=== PATIENT | female | born 1945 | race Caucasian/White ===

== ENCOUNTER 2019-07-12 12:45 | Emergency (ER) | payer BC, MEDICARE ==
--- NOTE | 2019-07-12 12:49 | ERPHSYRPT ---
- History of Present Illness Time Seen by Provider: 07/12/19 12:48 Source: patient, family Exam Limitations: no limitations Physician History: 73 y/o white female was making her bed when she tripped and fell hitting her head and now has a headache and neck pain. pt states she might have lost consciousness. pt and pts daughter want pt to have ct scan head and c spine Occurred: just prior to arrival Reason for Fall: tripped Injuries/Pain Location: head, neck Loss of Consciousness: brief (seconds) Quality: aching Severity of Pain-Max: mild Severity of Pain-Current: mild Modifying Factors: Improves With: movement Associated Symptoms (Fall): lightheadedness Allergies/Adverse Reactions: cephalexin [From Keflex] Adverse Reaction (Verified 07/12/19 14:01) Home Medications: No Reportable Medications [No Reported Medications] 07/12/19 [History] - Review of Systems Constitutional: No Symptoms Eyes: No Symptoms Ears, Nose, & Throat: No Symptoms Respiratory: No Symptoms Cardiac: No Symptoms Abdominal/Gastrointestinal: No Symptoms Genitourinary Symptoms: No Symptoms Musculoskeletal: Neck Pain Skin: No Symptoms Neurological: Headache Psychological: No Symptoms Endocrine: No Symptoms Hematologic/Lymphatic: No Symptoms Immunological/Allergic: No Symptoms All Other Systems: Reviewed and Negative - Past Medical History Pertinent Past Medical History: Yes Neurological History: No Pertinent History ENT History: No Pertinent History Cardiac History: No Pertinent History Respiratory History: No Pertinent History Endocrine Medical History: No Pertinent History Musculoskeletal History: No Pertinent History GI Medical History: No Pertinent History History: No Pertinent History Psycho-Social History: No Pertinent History Female Reproductive Disorders: No Pertinent History - Past Surgical History Past Surgical History: Yes Neuro Surgical History: No Pertinent History Cardiac: No Pertinent History Respiratory: No Pertinent History Gastrointestinal: No Pertinent History Genitourinary: No Pertinent History Musculoskeletal: No Pertinent History Female Surgical History: No Pertinent History - Nursing Vital Signs Nursing Vital Signs: Initial Vital Signs Temperature 98.2 F 07/12/19 13:36 Pulse Rate 72 07/12/19 13:36 Respiratory Rate 16 07/12/19 13:36 Blood Pressure 183/75 07/12/19 13:36 Pain Scale Pain Intensity 1 - [place] Coma Score Best Eye Response ([place]): (4) open spontaneously Best Verbal Response ([place]): (5) oriented Best Motor Response ([place]): (6) obeys commands [place] Total: 15 - Physical Exam General Appearance: mild distress, alert, anxiety Head Injury: contusions, No active bleeding, No High's Sign Eye Exam: PERRL/EOMI, eyes nml inspection ENT Exam: airway nml, nml ext.inspection, hearing grossly normal Neck Exam: supple, trachea midline, full range of motion, normal alignment, muscle spasm, stiff neck Respiratory/Chest Exam: No chest tenderness Gastrointestinal Exam: No tenderness Rectal Exam: not done Back Exam: normal inspection, normal range of motion, No CVA tenderness, No vertebral tenderness Extremity Exam: normal inspection, normal range of motion, capillary refill <3 sec, pelvis stable Neurologic Exam: alert, oriented x 3, cooperative, surg rn II-XII nml as tested, normal mood/affect, nml cerebellar function, nml station & gait, sensation nml Skin Exam: normal color, warm, dry SpO2 Interpretation: normal O2 Delivery: Room Air - Course Nursing assessment & vital signs reviewed: Yes Ordered Tests: Active Orders 24 hr Category Date Time Status CERVICAL SPINE WO CONTRAST [CT] Stat Exams 07/12/19 14:11 Completed HEAD WITHOUT CONTRAST [CT] Stat Exams 07/12/19 14:10 Completed - Progress Progress: unchanged Progress Note: 07/12/19 15:27 ct head and c spine-no acute process Counseled pt/family regarding: diagnosis, need for follow-up, rad results - Departure Departure Disposition: Home Clinical Impression: Fall, Head injury Condition: Stable Critical Care Time: No Additional Instructions: tylenol and ibuprofen for pain. follow up with primary doctor for persistent symptoms
[2019-07-12 14:00] VITALS: BP 183/75
--- NOTE | 2019-07-12 14:44 | XRAY ---
Indication: Pain following fall. Multiple contiguous axial images obtained through the head without contrast. Comparison: None Globe atrophy within normal limits for patient's age. No acute intracranial hemorrhage, abnormal extra-axial fluid collection, or mass effect. Fourth ventricle is midline without hydrocephalus. Mena-white matter differentiation preserved. Bony calvarium intact. Visualized paranasal sinuses and mastoid air cells are clear. Impression: Age-appropriate atrophy. No acute intracranial abnormalities.
--- NOTE | 2019-07-12 14:47 | XRAY ---
Indication: Neck pain following fall. Multiple contiguous axial images obtained through the cervical spine. Sagittal and coronal reformatted images obtained. Comparison: None Axial images negative for acute fracture, suspicious bony lesions, or spinal canal stenosis. There is mild C3-T1 degenerative endplate spurring. Also mild/moderate multilevel bilateral degenerative facet hypertrophy. Sagittal and coronal reformatted images demonstrates cervical lordotic straightening, positional versus paraspinal spasm. C4 segment demonstrates 2 mm anterolisthesis. C5-T1 disc space narrowing. No acute compression fracture or jumped facet. Normal appearing craniocervical junction. Visualized noncontrasted soft tissues demonstrates mild bilateral carotid calcifications and minimal biapical fibrosis/scarring. Impression: 1. Cervical lordotic straightening, positional versus paraspinal spasm. Negative for acute fracture. 2. Multilevel degenerative changes including minimal grade 1 C4 anterolisthesis.
[2019-07-12 15:34] VITALS: PULSE 58; O2SAT 99
== END 2019-07-12 15:45 | disposition home or self-care (01) ==
LOC: ED 12:45
DX: S09.90XA Unspecified injury of head, initial encounter (principal); R51 Headache; M54.2 Cervicalgia; W01.10XA Fall on same level from slipping, tripping and stumbling with subsequent striking against unspecified object, initial encounter
CPT/HCPCS: 70450; 72125; 99283

== ENCOUNTER 2020-12-07 10:32 | Observation (INO) | payer MEDICARE ==
[2020-12-07 11:25] LABS: Absolute Neutrophil Ct (ANC) 4.96 (1.4-6.9); BASOPHIL % 0.3 % (0.0-0.4); Basophil (Absolute #) 0.02 (0-0.4); Eosinophil % 0.9 % (0.00-5.0); Eosinophil (Absolute #) 0.06 (0-0.5); Hematocrit 37.2 % (35-47); Hemoglobin 12.2 gm/dl (12.0-16.0); Lymphocyte (Absolute #) 1.24 (1.0-4.6); Lymphocytes % 18.5 % (24.0-44.0); Mean Cell Volume 95.1 fl (78-100); Mean Corpuscular Hemoglobin 31.2 pg (26-32); Mean Corpuscular Hgb Concent. 32.8 g/dl (32-36); Mean Platelet Volume 10.5 fl (7.5-11.0); Monocyte (Absolute #) 0.43 (0.0-1.3); Monocytes % 6.4 % (0.0-12.0); Neutrophil % 73.9 % (36.0-66.0); Platelet Count 292 K/mm3 (150-450); Red Blood Count 3.91 M/mm3 (4.1-5.4); Red Cell Distribution Width 13.5 % (11.5-14.0); White Blood Count 6.7 K/mm3 (4.0-10.5)
[2020-12-07 11:27] LABS: ALBUMIN 4.3 g/dL (3.5-5.0); ANION GAP 11.5 MEQ/L (5-15); BILIRUBIN,TOTAL 0.5 mg/dL (0.2-1.3); Calcium 9.8 mg/dL (8.4-10.2); Creatinine 1 1.22 mg/dL (0.52-1.04); EST GLOMERULAR FILTRATION RATE 45.4 ML/MIN; Potassium 3.9 mmol/L (3.5-5.1); Total Protein 6.9 g/dL (6.3-8.2)
--- NOTE | 2020-12-07 11:31 | ERPHSYRPT ---
- History of Present Illness Source: patient Exam Limitations: no limitations Patient Subjective Stated Complaint: Dizziness Triage Nursing Assessment: Patient brought back to ED via w/c and transferred to bed with assist of 1. Patient's skin pale, warm and dry. Patient states she woke up around 0900 and was dizzy with N/V. Patient denies pain or discomfort. Physician History: 75 yo wf w sudden onset of dizziness at 9AM while waking up. Pt stated that she felt the room spinning. Dizziness accompanied by N/V. Pt denied focal weakness/chest pain/fever/shortness of breath/otalgia/cough/abdominal pain. She had B cataract surgery October 28. Pt has no h/o vertigo. Symptoms resolved prior to arrival. Timing/Duration: other (Stareted 9AM) Character of Deficits: other (Dizziness) Deficits: off balance (Resolved) Baseline/Normal Cognition: alert oriented x 3 Current Cognition: alert oriented x 3 Baseline Gait: walks w/o assistance Associated Symptoms: nausea, vomiting, No confusion, No fatigue, No fever, No chills, No loss of consciousness, No weakness, No insomnia, No muscle spasms, No numbness/tingling in legs/feet, No paresthesia, No ringing in ears, No seizures, No slurred speech, No trouble walking, No vision changes, No chest pain, No headache Allergies/Adverse Reactions: cephalexin [From Keflex] Adverse Reaction (Verified 12/07/20 18:38) Diarrhea Home Medications: Dextran 70/Hypromellose [Artificial Tears Drops] 1 drop OP DAILY 12/07/20 [History] Hx Tetanus, Diphtheria Vaccination/Date Given: (unknown) Hx Influenza Vaccination/Date Given: Yes Hx Pneumococcal Vaccination/Date Given: No Immunizations Up to Date: Yes Travel Risk - International Travel Have you traveled outside of the country in past 3 weeks: No - Coronavirus Screening Are you exhibiting any of the following symptoms?: No Close contact with a COVID-19 positive Pt in past 14-21 Days: No - Vaccine Status Have you recieved a Covid-19 vaccination: No - Review of Systems Constitutional: No Symptoms Eyes: No Symptoms Ears, Nose, & Throat: No Symptoms Respiratory: No Symptoms Cardiac: No Symptoms Abdominal/Gastrointestinal: No Symptoms Genitourinary Symptoms: No Symptoms Musculoskeletal: No Symptoms Skin: No Symptoms Neurological: Dizziness Psychological: No Symptoms Endocrine: No Symptoms Hematologic/Lymphatic: No Symptoms Immunological/Allergic: No Symptoms - Past Medical History Pertinent Past Medical History: Yes Neurological History: No Pertinent History ENT History: No Pertinent History Cardiac History: No Pertinent History Respiratory History: No Pertinent History Endocrine Medical History: No Pertinent History Musculoskeletal History: No Pertinent History GI Medical History: No Pertinent History History: No Pertinent History Psycho-Social History: No Pertinent History Female Reproductive Disorders: No Pertinent History - Past Surgical History Past Surgical History: Yes Neuro Surgical History: No Pertinent History Cardiac: No Pertinent History Respiratory: No Pertinent History Gastrointestinal: No Pertinent History Genitourinary: No Pertinent History Musculoskeletal: No Pertinent History Female Surgical History: No Pertinent History Other Surgical History: cyst removed from left breast years ago, ovarian cysts removed that caused temporary paralysis prior to removal - Social History Smoking Status: Never smoker Exposure to second hand smoke: No Drug Use: none Patient Lives Alone: No (son) Significant Family History: no pertinent family hx - Female History Hx Now: No - Nursing Vital Signs Nursing Vital Signs: Initial Vital Signs Temperature 96.9 F 12/07/20 10:44 Pulse Rate 69 12/07/20 10:44 Respiratory Rate 18 12/07/20 10:44 Blood Pressure 176/80 12/07/20 10:44 O2 Sat by Pulse Oximetry 99 12/07/20 10:44 Pain Scale Pain Intensity 0 - Kobi Coma Scale Best Eye Response ([place]): (4) open spontaneously Best Verbal Response ([place]): (5) oriented Best Motor Response ([place]): (6) obeys commands [place] Total: 15 - Physical Exam General Appearance: no apparent distress Eye Exam: bilateral eye: normal inspection, PERRL, EOMI Ears, Nose, Throat Exam: normal ENT inspection, TMs normal, pharynx normal, moist mucous membranes Neck Exam: normal inspection, non-tender, supple, full range of motion, No meningismus, No mass, No Brudzinski, No Kernig's Respiratory: normal breath sounds, lungs clear, airway intact Cardiovascular: regular rate/rhythm, normal heart sounds, normal peripheral pulses, No murmur Gastrointestinal: soft, normal bowel sounds, No tenderness Back Exam: normal inspection, normal range of motion, No CVA tenderness Extremity Exam: normal inspection, normal range of motion Peripheral Pulses: carotid (R): 2+, carotid (L): 2+ Mental Status: alert, oriented x 3, cooperative automobile service station attendant Exam: normal hearing, normal speech, PERRL, No abnormal gag reflex Coordination/Gait: normal finger to nose, negative Romberg's sign Motor/Sensory: no motor deficit, no sensory deficit, no pronator drift DTR: bicep (R): 2+, bicep (L): 2+, knee (R): 2+, knee (L): 2+ Skin Exam: normal color, warm, dry, No rash SpO2 Interpretation: normal SpO2: 99 O2 Delivery: Room Air - Course Nursing assessment & vital signs reviewed: Yes EKG Interpreted by Me: RATE (NSR/R79/Borderline prolonged QTc/Normal ST[facility]) - CT Exams Head CT Interpretation: Discussed w/radiologist (CTA Head/Neck neg for acute pathology per Dr. Montez/Minimal CA stenosis) Ordered Tests: Active Orders 24 hr Category Date Time Status Chip Applying Machine Tender STAT Care 12/07/20 10:49 Completed EKG-ER Only STAT Care 12/07/20 10:48 Completed Heart-Healthy Diet Diet 12/07/[address] ANGIOGRAPHY NECK [CT] Stat Exams 12/07/20 10:50 Completed CTA HEAD W AND/OR WO CONTRAST [CT] Stat Exams 12/07/20 10:49 Completed MRI BRAIN W/O CONTRAST [MRI] Stat Exams 12/07/20 13:37 Completed CBC W DIFF AM.LAB Lab 12/08/20 04:00 Ordered CBC W DIFF Stat Lab 12/07/20 11:00 Completed CMP AM.LAB Lab 12/08/20 04:00 Ordered CMP Stat Lab 12/07/20 11:00 Completed TROPONIN Q3H Lab 12/07/20 11:00 Completed TROPONIN Q3H Lab 12/07/20 13:00 Completed TROPONIN Q3H Lab 12/07/20 17:12 Completed TROPONIN Q3H Lab 12/07/20 20:38 Completed TROPONIN Q3H Lab 12/07/20 22:40 Completed Transfer Order Routine Transfer 12/07/20 Completed Medication Summary Generic Name Dose Route Start Last Admin Trade Name Freq PRN Reason Stop Dose Admin Sodium Chloride 1,000 mls @ 100 mls/hr 12/07/20 16:45 12/07/20 17:18 Sodium Chloride 0.9% 1000 Ml IV 01/06/21 16:44 100 mls/hr .Q10H INDIRA Administration Meclizine HCl 25 mg 12/07/20 16:43 Antivert 25 Mg PO 01/06/21 16:42 Q6H PRN PRN DIZZINESS Ondansetron HCl 4 mg 12/07/20 16:40 Zofran 4 Mg/2 Ml Vial IV 01/06/21 16:39 Q6H PRN PRN NAUSEA/VOMITING Pantoprazole Sodium 40 mg 12/08/20 10:00 Protonix 40 Mg Iv IV 01/07/21 09:59 Q24H10 INDIRA Discontinued Medications Generic Name Dose Route Start Last Admin Trade Name Freq PRN Reason Stop Dose Admin Lorazepam 1 mg 12/07/20 14:06 12/07/20 14:09 Ativan 2 Mg/1 Ml Vial IV 12/07/20 14:07 1 mg STAT ONE Administration Lorazepam Confirm 12/07/20 14:07 Ativan 2 Mg/1 Ml Vial Administered 12/07/20 14:08 Dose 2 mg .ROUTE .STK-Extreme DA ONE Meclizine HCl 25 mg 12/07/20 16:01 12/07/20 16:03 Antivert 25 Mg PO 12/07/20 16:02 25 mg STAT ONE Administration Meclizine HCl Confirm 12/07/20 16:03 Antivert 25 Mg Administered 12/07/20 16:04 Dose 25 mg .ROUTE .[employer]-MED ONE Lab/Rad Data: Laboratory Result Diagrams 12/07/20 11:00 12/07/20 11:00 Laboratory Results 12/07/20 12/07/20 12/07/20 Range/Units 17:12 16:50 13:00 WBC (4.0-10.5) K/mm3 RBC (4.1-5.4) M/mm3 Hgb (12.0-16.0) gm/dl Hct (35-47) % MCV (78-100) fl MCH (26-32) pg MCHC (32-36) g/dl RDW (11.5-14.0) % Plt Count (150-450) K/mm3 MPV (7.5-11.0) fl Gran % (36.0-66.0) % Eos # (Auto) (0-0.5) Absolute Lymphs (auto) (1.0-4.6) Absolute Monos (auto) (0.0-1.3) Lymphocytes % (24.0-44.0) % Monocytes % (0.0-12.0) % Eosinophils % (0.00-5.0) % Basophils % (0.0-0.4) % Absolute Granulocytes (1.4-6.9) Basophils # (0-0.4) Sodium (137-145) mmol/L Potassium (3.5-5.1) mmol/L Chloride (98-107) mmol/L Carbon Dioxide (22-30) mmol/L Anion Gap (5-15) MEQ/L BUN (7-17) mg/dL Creatinine (0.52-1.04) mg/dL Estimated GFR ML/MIN Glucose (74-106) mg/dL Calcium (8.4-10.2) mg/dL Total Bilirubin (0.2-1.3) mg/dL AST (14-36) U/L ALT (0-35) U/L Alkaline Phosphatase (38-126) U/L Troponin I < 0.012 < 0.012 (0.000-0.034) ng/mL Serum Total Protein (6.3-8.2) g/dL Albumin (3.5-5.0) g/dL SARS-CoV-2 (PCR) NEGATIVE (NEGATIVE) 12/07/20 12/07/20 12/07/20 Range/Units 11:00 11:00 11:00 WBC 6.7 (4.0-10.5) K/mm3 RBC 3.91 L (4.1-5.4) M/mm3 Hgb 12.2 (12.0-16.0) gm/dl Hct 37.2 (35-47) % MCV 95.1 (78-100) fl MCH 31.2 (26-32) pg MCHC 32.8 (32-36) g/dl RDW 13.5 (11.5-14.0) % Plt Count 292 (150-450) K/mm3 MPV 10.5 (7.5-11.0) fl Gran % 73.9 H (36.0-66.0) % Eos # (Auto) 0.06 (0-0.5) Absolute Lymphs (auto) 1.24 (1.0-4.6) Absolute Monos (auto) 0.43 (0.0-1.3) Lymphocytes % 18.5 L (24.0-44.0) % Monocytes % 6.4 (0.0-12.0) % Eosinophils % 0.9 (0.00-5.0) % Basophils % 0.3 (0.0-0.4) % Absolute Granulocytes 4.96 (1.4-6.9) Basophils # 0.02 (0-0.4) Sodium 137 (137-145) mmol/L Potassium 3.9 (3.5-5.1) mmol/L Chloride 105 (98-107) mmol/L Carbon Dioxide 25 (22-30) mmol/L Anion Gap 11.5 (5-15) MEQ/L BUN 15 (7-17) mg/dL Creatinine 1.22 H (0.52-1.04) mg/dL Estimated GFR 45.4 ML/MIN Glucose 138 H (74-106) mg/dL Calcium 9.8 (8.4-10.2) mg/dL Total Bilirubin 0.50 (0.2-1.3) mg/dL AST 26 (14-36) U/L ALT 13 (0-35) U/L Alkaline Phosphatase 96 (38-126) U/L Troponin I < 0.012 (0.000-0.034) ng/mL Serum Total Protein 6.9 (6.3-8.2) g/dL Albumin 4.3 (3.5-5.0) g/dL SARS-CoV-2 (PCR) (NEGATIVE) - Progress Progress Note: 12/07/20 16:21 Pt developed dizziness walking to the bathroom, so MRI brain obtained which was neg for acute CVA. Pt has remote L basilar gangia infarct. spoke w Dr. Murphy about admit, but she would prefer to follow up pt in the office in AM. 25mg po Meclizine given pt. 12/07/20 16:39 Pt too unsteady on her feet, so Dr. Murphy called and will admit pt. Counseled pt/family regarding: lab results, diagnosis, need for follow-up, rad results - Departure Departure Disposition: Home Clinical Impression: Vertigo Condition: Stable Critical Care Time: No
--- NOTE | 2020-12-07 12:29 | XRAY ---
Indication: Dizziness. Vomiting. Conventional contrast enhanced CTA neck performed using 80 cc Isovue 370 contrast. Two-dimensional sagittal and coronal reformatted images obtained. 3D reformatted images obtained using separate workstation. Comparison: None Visualized aortic arch demonstrates normal branching right brachiocephalic, left common carotid, and left subclavian arteries. Very minimal arteriosclerotic calcifications seen of the aortic arch and origin left subclavian artery. Right common carotid artery, carotid bulb, and external carotid artery normal in CTA appearance. At the level of the proximal internal carotid artery, there is mild eccentric calcified plaquing producing less than 50% stenosis. Left common carotid and external carotid artery normal in CT appearance. Very minimal calcifications at the level of the bulb and mild eccentric calcifications in the proximal internal carotid artery producing less than 50% stenosis. Vertebral arteries are bilaterally symmetric without critical stenosis, dissection, or AV malformation. Visualized soft tissues are negative for pathologic lymphadenopathy. Thyroid gland enhances homogeneously. Supra and infraglottic airway widely patent with normal epiglottis. Lung apices demonstrates minimal fibrosis/scarring bilaterally. CT cervical spine and CT head reported separately. Impression: 1. Minimal/mild carotid arteriosclerotic calcifications producing less than 50% stenosis bilaterally as detailed above. 2. Normal CTA vertebral arteries.
--- NOTE | 2020-12-07 12:33 | XRAY ---
Indication: Dizziness. Vomiting. Conventional contrast enhanced CTA head performed using 80 cc Isovue 370 contrast. Two-dimensional sagittal and coronal reformatted images obtained. Additional 3D reformatted images obtained using a separate workstation. Comparison: None Distal internal carotid arteries are bilaterally symmetric with very minimal arteriosclerotic calcifications involving the parasellar segments without critical stenosis or obstruction. Normal carotid terminus with normal branching A1 and M1 segments bilaterally. More distal anterior cerebral, middle cerebral, anterior communicating, and posterior communicating arteries are normal in CTA appearance. Basilar artery is normal in course and caliber. Branching posterior cerebral and superior cerebellar arteries are normal in CTA appearance. Visualized venous drainage/sinuses are unremarkable. Remaining visualized whole brain images are negative for abnormal enhancing intra-or extra-axial mass. Impression: Very minimal arteriosclerotic calcifications distal internal carotid arteries bilaterally without critical stenosis/obstruction. Remaining CTA head with contrast exam is negative.
[2020-12-07] MEDS ORDERED: Ativan 2 MG/1 ML VIAL IV ONE (14:06)
[2020-12-07] MEDS ORDERED: Ativan 2 MG/1 ML VIAL ONE (14:07)
--- NOTE | 2020-12-07 15:15 | XRAY ---
Indication: Dizziness. Vomiting. Sagittal, coronal, and axial MRI brain performed without contrast using T1, T2, FLAIR, diffusion, and ADC sequences. Comparison: None Age-appropriate global atrophy and minimal periventricular degenerative micro-ischemia signal bilaterally. Tiny remote lacunar infarct left basal ganglia. No acute intracranial hemorrhage, abnormal extra-axial fluid collection, or mass effect. Diffusion images are negative for restricted signal. Fourth ventricle is midline without hydrocephalus. 7/8 cranial nerve complex bilaterally symmetric. Normal flow-void signal within the major intracerebral circulation. Normal appearing craniocervical junction and sella turcica. Paranasal sinuses are clear. Impression: Normal aging brain including atrophy and degenerative micro-ischemia. Remote left basal ganglia lacunar infarct. No acute intracranial abnormalities or evidence for evolving large vessel territorial stroke.
[2020-12-07] MEDS ORDERED: ANTIVERT 25 MG PO ONE (16:01)
[2020-12-07] MEDS ORDERED: ANTIVERT 25 MG ONE (16:03)
[2020-12-07] MEDS ORDERED: Zofran 4 MG/2 ML VIAL IV PRN (16:40)
[2020-12-07] MEDS ORDERED: ANTIVERT 25 MG PO PRN (16:43)
[2020-12-07] MEDS ORDERED: Sodium Chloride 0.9% 1000 ML 1,000 ML ONE (17:12)
[2020-12-07] MEDS: Sodium Chloride 0.9% 1000 ML 1,000 ML IV SCH (17:18)
[2020-12-08] MEDS: Sodium Chloride 0.9% 1000 ML 1,000 ML IV SCH (02:40)
[2020-12-08 05:10] LABS: Absolute Neutrophil Ct (ANC) 3.29 (1.4-6.9); BASOPHIL % 0.3 % (0.0-0.4); Basophil (Absolute #) 0.02 (0-0.4); Eosinophil % 2.4 % (0.00-5.0); Eosinophil (Absolute #) 0.15 (0-0.5); Hematocrit 34.8 % (35-47); Hemoglobin 11.2 gm/dl (12.0-16.0); Lymphocytes % 33.9 % (24.0-44.0); Mean Cell Volume 96.1 fl (78-100); Mean Corpuscular Hemoglobin 30.9 pg (26-32); Mean Corpuscular Hgb Concent. 32.2 g/dl (32-36); Mean Platelet Volume 11.3 fl (7.5-11.0); Monocyte (Absolute #) 0.64 (0.0-1.3); Monocytes % 10.3 % (0.0-12.0); Neutrophil % 53.1 % (36.0-66.0); Platelet Count 273 K/mm3 (150-450); Red Blood Count 3.62 M/mm3 (4.1-5.4); Red Cell Distribution Width 13.7 % (11.5-14.0); White Blood Count 6.2 K/mm3 (4.0-10.5)
[2020-12-08 05:58] LABS: ALBUMIN 3.6 g/dL (3.5-5.0); ALKALINE PHOSPHATASE 78 U/L (38-126); ANION GAP 11.2 MEQ/L (5-15); BLOOD UREA NITROGEN 11 mg/dL (7-17); CHLORIDE 108 mmol/L (98-107); Calcium 8.9 mg/dL (8.4-10.2); Carbon Dioxide 22 mmol/L (22-30); Creatinine 1 0.91 mg/dL (0.52-1.04); EST GLOMERULAR FILTRATION RATE > 60.0 ML/MIN; Glucose 87 mg/dL (74-106); Potassium 3.6 mmol/L (3.5-5.1); SGOT/AST 26 U/L (14-36); SGPT/ALT 11 U/L (0-35); SODIUM 138 mmol/L (137-145)
[2020-12-08] MEDS ORDERED: PROTONIX 40 MG IV IV SCH (10:00)
[2020-12-08 10:11] LABS: MAGNESIUM 2.1 mg/dL (1.6-2.3); TSH, 3RD Generation 1.07 mIU/L (0.47-4.68)
[2020-12-08 11:59] VITALS: BP 181/73; PULSE 73; O2SAT 96
[2020-12-08] MEDS ORDERED: Cyanocobalamin B-12 1000 MCG/ML SQ ONE (12:48)
--- NOTE | 2020-12-08 17:06 | PCM.SSS ---
History of Present Illness - Chief Complaint Chief Complaint: dizziness History of Present Illness: is a 75 year old female generally in good health and only on eye drops post catarac surgery presented to the ER with dizziness. Medications & Allergies Home Medications: Home Medication List Dextran 70/Hypromellose [Artificial Tears Drops] 1 drop OP DAILY 12/07/20 [History Confirmed 12/07/20] Meclizine HCl 12.5 mg PO TIDPRN #50 tablet 12/08/20 [Rx] Allergies/Adverse Reactions: Allergies Allergy/AdvReac Type Severity Reaction Status Date / Time cephalexin [From Keflex] AdvReac Diarrhea Verified 12/07/20 18:38 - Past Medical History Past Medical History: Yes Neurological History: No Pertinent History ENT History: No Pertinent History Cardiac History: No Pertinent History Respiratory History: No Pertinent History Endocrine Medical History: No Pertinent History Musculoskelatal History: No Pertinent History GI Medical History: No Pertinent History History: No Pertinent History Pyscho-Social History: No Pertinent History Reproductive Disorders: No Pertinent History - Female History Are you now?: No - Past Surgical History Past Surgical History: Yes Neuro Surgical History: No Pertinent History Cardiac History: No Pertinent History Respiratory Surgery: No Pertinent History GI Surgical History: No Pertinent History Genitourinary Surgical Hx: No Pertinent History Musculskeletal Surgical Hx: No Pertinent History Female Surgical History: No Pertinent History Other Surgical History: cyst removed from left breast years ago, ovarian cysts removed that caused temporary paralysis prior to removal - Social History Smoking Status: Never smoker Exposure to second hand smoke: No Alcohol: None Drug Use: none Significant Family History: no pertinent family hx - Physical Exam Vital Signs: Vital Signs - 24 hr Temp Pulse Resp BP Pulse Ox 12/08/20 11:58 98.3 F 73 16 181/73 96 12/08/20 07:56 98.5 F 54 L 16 144/65 97 12/08/20 04:00 98.4 F 67 14 139/73 97 12/08/20 00:23 99 12/08/20 00:00 98.2 F 62 14 116/60 97 12/07/20 23:33 16 12/07/20 20:00 16 12/07/20 19:27 98.4 F 74 16 169/75 98 12/07/20 19:23 98.4 F 74 16 169/75 98 12/07/20 18:09 72 18 147/88 98 Results - Labs Lab/Micro Results: Lab Results-Last 24 Hours 12/07/20 12/07/20 12/07/20 Range/Units 16:50 17:12 20:38 WBC (4.0-10.5) K/mm3 RBC (4.1-5.4) M/mm3 Hgb (12.0-16.0) gm/dl Hct (35-47) % MCV (78-100) fl MCH (26-32) pg MCHC (32-36) g/dl RDW (11.5-14.0) % Plt Count (150-450) K/mm3 MPV (7.5-11.0) fl Gran % (36.0-66.0) % Eos # (Auto) (0-0.5) Absolute Lymphs (auto) (1.0-4.6) Absolute Monos (auto) (0.0-1.3) Lymphocytes % (24.0-44.0) % Monocytes % (0.0-12.0) % Eosinophils % (0.00-5.0) % Basophils % (0.0-0.4) % Absolute Granulocytes (1.4-6.9) Basophils # (0-0.4) Sodium (137-145) mmol/L Potassium (3.5-5.1) mmol/L Chloride (98-107) mmol/L Carbon Dioxide (22-30) mmol/L Anion Gap (5-15) MEQ/L BUN (7-17) mg/dL Creatinine (0.52-1.04) mg/dL Estimated GFR ML/MIN Glucose (74-106) mg/dL Calcium (8.4-10.2) mg/dL Magnesium (1.6-2.3) mg/dL Total Bilirubin (0.2-1.3) mg/dL AST (14-36) U/L ALT (0-35) U/L Alkaline Phosphatase (38-126) U/L Troponin I < 0.012 < 0.012 (0.000-0.034) ng/mL Serum Total Protein (6.3-8.2) g/dL Albumin (3.5-5.0) g/dL Vitamin B12 (239-931) pg/mL TSH 3rd Generation (0.47-4.68) mIU/L SARS-CoV-2 (PCR) NEGATIVE (NEGATIVE) 12/07/20 12/08/20 12/08/20 Range/Units 22:40 04:00 04:00 WBC 6.2 (4.0-10.5) K/mm3 RBC 3.62 L (4.1-5.4) M/mm3 Hgb 11.2 L (12.0-16.0) gm/dl Hct 34.8 L (35-47) % MCV 96.1 (78-100) fl MCH 30.9 (26-32) pg MCHC 32.2 (32-36) g/dl RDW 13.7 (11.5-14.0) % Plt Count 273 (150-450) K/mm3 MPV 11.3 H (7.5-11.0) fl Gran % 53.1 (36.0-66.0) % Eos # (Auto) 0.15 (0-0.5) Absolute Lymphs (auto) 2.10 (1.0-4.6) Absolute Monos (auto) 0.64 (0.0-1.3) Lymphocytes % 33.9 (24.0-44.0) % Monocytes % 10.3 (0.0-12.0) % Eosinophils % 2.4 (0.00-5.0) % Basophils % 0.3 (0.0-0.4) % Absolute Granulocytes 3.29 (1.4-6.9) Basophils # 0.02 (0-0.4) Sodium 138 (137-145) mmol/L Potassium 3.6 (3.5-5.1) mmol/L Chloride 108 H (98-107) mmol/L Carbon Dioxide 22 (22-30) mmol/L Anion Gap 11.2 (5-15) MEQ/L BUN 11 (7-17) mg/dL Creatinine 0.91 (0.52-1.04) mg/dL Estimated GFR > 60.0 ML/MIN Glucose 87 (74-106) mg/dL Calcium 8.9 (8.4-10.2) mg/dL Magnesium (1.6-2.3) mg/dL Total Bilirubin 0.40 (0.2-1.3) mg/dL AST 26 (14-36) U/L ALT 11 (0-35) U/L Alkaline Phosphatase 78 (38-126) U/L Troponin I < 0.012 (0.000-0.034) ng/mL Serum Total Protein 6.0 L (6.3-8.2) g/dL Albumin 3.6 (3.5-5.0) g/dL Vitamin B12 (239-931) pg/mL TSH 3rd Generation (0.47-4.68) mIU/L SARS-CoV-2 (PCR) (NEGATIVE) 12/08/20 Range/Units 05:00 WBC (4.0-10.5) K/mm3 RBC (4.1-5.4) M/mm3 Hgb (12.0-16.0) gm/dl Hct (35-47) % MCV (78-100) fl MCH (26-32) pg MCHC (32-36) g/dl RDW (11.5-14.0) % Plt Count (150-450) K/mm3 MPV (7.5-11.0) fl Gran % (36.0-66.0) % Eos # (Auto) (0-0.5) Absolute Lymphs (auto) (1.0-4.6) Absolute Monos (auto) (0.0-1.3) Lymphocytes % (24.0-44.0) % Monocytes % (0.0-12.0) % Eosinophils % (0.00-5.0) % Basophils % (0.0-0.4) % Absolute Granulocytes (1.4-6.9) Basophils # (0-0.4) Sodium (137-145) mmol/L Potassium (3.5-5.1) mmol/L Chloride (98-107) mmol/L Carbon Dioxide (22-30) mmol/L Anion Gap (5-15) MEQ/L BUN (7-17) mg/dL Creatinine (0.52-1.04) mg/dL Estimated GFR ML/MIN Glucose (74-106) mg/dL Calcium (8.4-10.2) mg/dL Magnesium 2.1 (1.6-2.3) mg/dL Total Bilirubin (0.2-1.3) mg/dL AST (14-36) U/L ALT (0-35) U/L Alkaline Phosphatase (38-126) U/L Troponin I (0.000-0.034) ng/mL Serum Total Protein (6.3-8.2) g/dL Albumin (3.5-5.0) g/dL Vitamin B12 196 L (239-931) pg/mL TSH 3rd Generation 1.070 (0.47-4.68) mIU/L SARS-CoV-2 (PCR) (NEGATIVE) - Radiology Impressions Radiology Exams & Impressions: Radiology Procedures Category Date Time Status CT ANGIOGRAPHY NECK [CT] Stat Exams 12/07/20 10:50 Completed CTA HEAD W AND/OR WO CONTRAST [CT] Stat Exams 12/07/20 10:49 Completed MRI BRAIN W/O CONTRAST [MRI] Stat Exams 12/07/20 13:37 Completed Hospital Summary - Vitals & Intake/Output Vital Signs: Vital Signs Temperature 98.3 F 12/08/20 11:58 Pulse Rate 73 12/08/20 11:58 Respiratory Rate 16 12/08/20 11:58 Blood Pressure 181/73 12/08/20 11:58 O2 Sat by Pulse Oximetry 96 12/08/20 11:58 Intake & Output: Intake & Output 12/06/20 12/07/20 12/08/20 12/09/20 11:59 11:59 11:59 11:59 Intake Total 1396 480 Output Total 800 Balance 596 480 Weight 61.235 kg 63.6 kg - Lab Result Diagrams: 12/08/20 04:00 12/08/20 04:00 Lab Results-Last 24 Hrs: Lab Results-Last 24 Hours 12/07/20 12/07/20 12/07/20 Range/Units 16:50 17:12 20:38 WBC (4.0-10.5) K/mm3 RBC (4.1-5.4) M/mm3 Hgb (12.0-16.0) gm/dl Hct (35-47) % MCV (78-100) fl MCH (26-32) pg MCHC (32-36) g/dl RDW (11.5-14.0) % Plt Count (150-450) K/mm3 MPV (7.5-11.0) fl Gran % (36.0-66.0) % Eos # (Auto) (0-0.5) Absolute Lymphs (auto) (1.0-4.6) Absolute Monos (auto) (0.0-1.3) Lymphocytes % (24.0-44.0) % Monocytes % (0.0-12.0) % Eosinophils % (0.00-5.0) % Basophils % (0.0-0.4) % Absolute Granulocytes (1.4-6.9) Basophils # (0-0.4) Sodium (137-145) mmol/L Potassium (3.5-5.1) mmol/L Chloride (98-107) mmol/L Carbon Dioxide (22-30) mmol/L Anion Gap (5-15) MEQ/L BUN (7-17) mg/dL Creatinine (0.52-1.04) mg/dL Estimated GFR ML/MIN Glucose (74-106) mg/dL Calcium (8.4-10.2) mg/dL Magnesium (1.6-2.3) mg/dL Total Bilirubin (0.2-1.3) mg/dL AST (14-36) U/L ALT (0-35) U/L Alkaline Phosphatase (38-126) U/L Troponin I < 0.012 < 0.012 (0.000-0.034) ng/mL Serum Total Protein (6.3-8.2) g/dL Albumin (3.5-5.0) g/dL Vitamin B12 (239-931) pg/mL TSH 3rd Generation (0.47-4.68) mIU/L SARS-CoV-2 (PCR) NEGATIVE (NEGATIVE) 12/07/20 12/08/20 12/08/20 Range/Units 22:40 04:00 04:00 WBC 6.2 (4.0-10.5) K/mm3 RBC 3.62 L (4.1-5.4) M/mm3 Hgb 11.2 L (12.0-16.0) gm/dl Hct 34.8 L (35-47) % MCV 96.1 (78-100) fl MCH 30.9 (26-32) pg MCHC 32.2 (32-36) g/dl RDW 13.7 (11.5-14.0) % Plt Count 273 (150-450) K/mm3 MPV 11.3 H (7.5-11.0) fl Gran % 53.1 (36.0-66.0) % Eos # (Auto) 0.15 (0-0.5) Absolute Lymphs (auto) 2.10 (1.0-4.6) Absolute Monos (auto) 0.64 (0.0-1.3) Lymphocytes % 33.9 (24.0-44.0) % Monocytes % 10.3 (0.0-12.0) % Eosinophils % 2.4 (0.00-5.0) % Basophils % 0.3 (0.0-0.4) % Absolute Granulocytes 3.29 (1.4-6.9) Basophils # 0.02 (0-0.4) Sodium 138 (137-145) mmol/L Potassium 3.6 (3.5-5.1) mmol/L Chloride 108 H (98-107) mmol/L Carbon Dioxide 22 (22-30) mmol/L Anion Gap 11.2 (5-15) MEQ/L BUN 11 (7-17) mg/dL Creatinine 0.91 (0.52-1.04) mg/dL Estimated GFR > 60.0 ML/MIN Glucose 87 (74-106) mg/dL Calcium 8.9 (8.4-10.2) mg/dL Magnesium (1.6-2.3) mg/dL Total Bilirubin 0.40 (0.2-1.3) mg/dL AST 26 (14-36) U/L ALT 11 (0-35) U/L Alkaline Phosphatase 78 (38-126) U/L Troponin I < 0.012 (0.000-0.034) ng/mL Serum Total Protein 6.0 L (6.3-8.2) g/dL Albumin 3.6 (3.5-5.0) g/dL Vitamin B12 (239-931) pg/mL TSH 3rd Generation (0.47-4.68) mIU/L SARS-CoV-2 (PCR) (NEGATIVE) 12/08/20 Range/Units 05:00 WBC (4.0-10.5) K/mm3 RBC (4.1-5.4) M/mm3 Hgb (12.0-16.0) gm/dl Hct (35-47) % MCV (78-100) fl MCH (26-32) pg MCHC (32-36) g/dl RDW (11.5-14.0) % Plt Count (150-450) K/mm3 MPV (7.5-11.0) fl Gran % (36.0-66.0) % Eos # (Auto) (0-0.5) Absolute Lymphs (auto) (1.0-4.6) Absolute Monos (auto) (0.0-1.3) Lymphocytes % (24.0-44.0) % Monocytes % (0.0-12.0) % Eosinophils % (0.00-5.0) % Basophils % (0.0-0.4) % Absolute Granulocytes (1.4-6.9) Basophils # (0-0.4) Sodium (137-145) mmol/L Potassium (3.5-5.1) mmol/L Chloride (98-107) mmol/L Carbon Dioxide (22-30) mmol/L Anion Gap (5-15) MEQ/L BUN (7-17) mg/dL Creatinine (0.52-1.04) mg/dL Estimated GFR ML/MIN Glucose (74-106) mg/dL Calcium (8.4-10.2) mg/dL Magnesium 2.1 (1.6-2.3) mg/dL Total Bilirubin (0.2-1.3) mg/dL AST (14-36) U/L ALT (0-35) U/L Alkaline Phosphatase (38-126) U/L Troponin I (0.000-0.034) ng/mL Serum Total Protein (6.3-8.2) g/dL Albumin (3.5-5.0) g/dL Vitamin B12 196 L (239-931) pg/mL TSH 3rd Generation 1.070 (0.47-4.68) mIU/L SARS-CoV-2 (PCR) (NEGATIVE) - Radiology Exams Ordered Rad Exams-Entire Visit: Radiology Procedures Category Date Time Status CT ANGIOGRAPHY NECK [CT] Stat Exams 12/07/20 10:50 Completed CTA HEAD W AND/OR WO CONTRAST [CT] Stat Exams 12/07/20 10:49 Completed MRI BRAIN W/O CONTRAST [MRI] Stat Exams 12/07/20 13:37 Completed - Procedures and Test Procedures and Tests throughout Hospitalization: Therapy Orders & Screens 12/08/20 08:55 PT Eval & Treat (MD Order) ONCE Reason for Eval:: dizziness with unsteadiness; unsteady gait Diagnosis: dizziness - Discharge Disposition: Home, Self-Care Condition: Stable Prescriptions: New Meclizine HCl 12.5 mg PO TIDPRN #50 tablet Continue Dextran 70/Hypromellose [Artificial Tears Drops] 1 drop OP DAILY Outpatient Orders: Physical Therapy Eval & Treat Time Frame: 12/09/20, Facility: [facility], Location: PHYSICAL THERAPY Instructions: Vertigo (a Type of Dizziness) (DC), Meclizine Additional Instructions: PLEASE KEEP YOUR SCHEDULED FOLLOWUP APPOINTMENT WITH DR. MENDEZ, THEY WILL ALSO MANAGE YOUR VITAMIN B12 INJECTIONS. [facility] WILL DELIVER YOUR NEW WALKER TO YOUR HOME. Follow up with: VINCE MENDEZ DO [ACTIVE STAFF] - 12/15/20 9:00 am Forms: Discharge Instructions
== END 2020-12-08 16:30 | disposition home or self-care (01) ==
LOC: ED 10:32 → MED SURG 18:30
PROVIDERS: ADMIT Family Medicine; ATTEND Family Medicine
DX: R42 Dizziness and giddiness (principal); R11.2 Nausea with vomiting, unspecified; Z79.899 Other long term (current) drug therapy; Z20.828 Contact with and (suspected) exposure to other viral communicable diseases; R26.81 Unsteadiness on feet
CPT/HCPCS: 36000; 36415; 70496; 70498; 70551; 80053; 82607; 83735; 84443; 84484; 85025; 93005; 93041; 93268; 96374; 97161; 99285; G0378; U0003; J2060; J3420; A9270-GY

== ENCOUNTER 2021-03-01 23:53 | Emergency (ER) | payer MEDICARE ==
--- NOTE | 2021-03-02 00:21 | ERPHSYRPT ---
- History of Present Illness Source: patient Exam Limitations: no limitations Patient Subjective Stated Complaint: Patient States " I was getting ready for bed and I all of sudden felt like my heart was racing and skipping beats." Triage Nursing Assessment: Patient arrived to ED with son at backdoor. Physician History: 75 yo wf w palpatations before going to bed. Pt denies chest pain/N/V/dyspnea/focal weakness/fever/cough/new meds. She states that they lasted 10 minutes and now feels back to normal. Timing/Duration: resolved prior to arrival Activities at Onset: rest Quality: other (No pain) Location: other (No pain) Chest Pain Radiation: no radiation Severity of Pain-Max: none Severity of Pain-Current: none Modifying Factors: Improves With: nothing Nitro Today/Relief: no nitro taken today Aspirin Treatment Today: no aspirin today Associated Symptoms: No nausea, No vomiting, No abdominal pain, No shortness of breath, No heartburn, No diaphoresis, No cough, No chills, No chest pain, No fever, No headaches, No loss of appetite, No malaise, No rash, No syncope, No seizure, No weakness Prior Chest Pain/Cardiac Workup: no prior chest pain Allergies/Adverse Reactions: cephalexin [From Keflex] Adverse Reaction (Verified 03/01/21 23:59) Diarrhea Home Medications: Dextran 70/Hypromellose [Artificial Tears Drops] 1 drop OP DAILY 12/07/20 [History] Hx Tetanus, Diphtheria Vaccination/Date Given: No Hx Influenza Vaccination/Date Given: Yes Hx Pneumococcal Vaccination/Date Given: No Immunizations Up to Date: Yes Travel Risk - International Travel Have you traveled outside of the country in past 3 weeks: No - Coronavirus Screening Are you exhibiting any of the following symptoms?: No Close contact with a COVID-19 positive Pt in past 14-21 Days: No - Vaccine Status Have you recieved a Covid-19 vaccination: No - Review of Systems Constitutional: No Symptoms Eyes: No Symptoms Ears, Nose, & Throat: No Symptoms Respiratory: No Symptoms Cardiac: No Symptoms, Palpitations Abdominal/Gastrointestinal: No Symptoms Genitourinary Symptoms: No Symptoms Musculoskeletal: No Symptoms Skin: No Symptoms Neurological: No Symptoms Psychological: No Symptoms Endocrine: No Symptoms Hematologic/Lymphatic: No Symptoms Immunological/Allergic: No Symptoms - Past Medical History Pertinent Past Medical History: Yes Neurological History: Other ENT History: No Pertinent History Cardiac History: No Pertinent History Respiratory History: No Pertinent History Endocrine Medical History: Hypoglycemia Musculoskeletal History: No Pertinent History GI Medical History: No Pertinent History History: No Pertinent History Psycho-Social History: No Pertinent History Female Reproductive Disorders: No Pertinent History Other Medical History: SEE ABOVE - Past Surgical History Past Surgical History: Yes Neuro Surgical History: No Pertinent History Cardiac: No Pertinent History Respiratory: No Pertinent History Gastrointestinal: No Pertinent History Genitourinary: No Pertinent History Musculoskeletal: No Pertinent History Female Surgical History: No Pertinent History Other Surgical History: cyst removed from left breast years ago, ovarian cysts removed that caused temporary paralysis prior to removal - Social History Smoking Status: Never smoker Exposure to second hand smoke: Yes Drug Use: none Patient Lives Alone: No Significant Family History: no pertinent family hx - Female History Hx Last Menstrual Period: POST Hx Now: No - Nursing Vital Signs Nursing Vital Signs: Initial Vital Signs Temperature 98.1 F 03/01/21 23:54 Pulse Rate 76 03/01/21 23:54 Respiratory Rate 18 03/01/21 23:54 Blood Pressure 196/77 03/01/21 23:54 O2 Sat by Pulse Oximetry 99 03/01/21 23:54 Pain Scale Pain Intensity 0 Hypertensive - Physical Exam General Appearance: no apparent distress Eye Exam: PERRL/EOMI, eyes nml inspection Ears, Nose, Throat Exam: normal ENT inspection, TMs normal, pharynx normal, moist mucous membranes Neck Exam: normal inspection, non-tender, supple, full range of motion, No meningismus, No mass, No Brudzinski, No Kernig's, No carotid bruit, No JVD Respiratory Exam: normal breath sounds, lungs clear, airway intact, No respiratory distress Cardiovascular Exam: regular rate/rhythm, normal heart sounds, normal peripheral pulses, No murmur Gastrointestinal/Abdomen Exam: soft, normal bowel sounds, No tenderness Back Exam: normal inspection, normal range of motion, No CVA tenderness Extremity Exam: normal inspection, normal range of motion Neurologic Exam: alert, oriented x 3, cooperative, normal mood/affect, nml station & gait, sensation nml, No motor deficits, No sensory deficit Skin Exam: normal color, warm, No dry Lymphatic Exam: No adenopathy SpO2 Interpretation: normal SpO2: 99 O2 Delivery: Room Air - Course Nursing assessment & vital signs reviewed: Yes EKG Interpreted by Me: RATE (NSR/Rate 100/normal QT-QTc/Non-specific ST-Twave changes) - Radiology Exams Chest X-ray Interpretation: Interpreted by me (AARON) Ordered Tests: Active Orders 24 hr Category Date Time Status EKG-ER Only STAT Care 03/02/21 00:13 Completed CHEST 1 VIEW (PORTABLE) Stat Exams 03/02/21 00:14 Taken CBC W DIFF Stat Lab 03/02/21 00:15 Completed CMP Stat Lab 03/02/21 00:15 Completed PROTIME WITH INR Stat Lab 03/02/21 00:15 Completed PTT Stat Lab 03/02/21 00:15 Completed TROPONIN Q3H Lab 03/02/21 00:15 Completed Lab/Rad Data: Laboratory Result Diagrams 03/02/21 00:15 03/02/21 00:15 Laboratory Results 03/02/21 03/02/21 03/02/21 Range/Units 00:15 00:15 00:15 WBC (4.0-10.5) K/mm3 RBC (4.1-5.4) M/mm3 Hgb (12.0-16.0) gm/dl Hct (35-47) % MCV (78-100) fl MCH (26-32) pg MCHC (32-36) g/dl RDW (11.5-14.0) % Plt Count (150-450) K/mm3 MPV (7.5-11.0) fl Gran % (36.0-66.0) % Eos # (Auto) (0-0.5) Absolute Lymphs (auto) (1.0-4.6) Absolute Monos (auto) (0.0-1.3) Lymphocytes % (24.0-44.0) % Monocytes % (0.0-12.0) % Eosinophils % (0.00-5.0) % Basophils % (0.0-0.4) % Absolute Granulocytes (1.4-6.9) Basophils # (0-0.4) PT 10.5 (9.4-12.5) SECONDS INR 0.89 (0.8-3.0) APTT 29.8 (25.1-36.5) SECONDS Sodium 136 L (137-145) mmol/L Potassium 3.9 (3.5-5.1) mmol/L Chloride 102 (98-107) mmol/L Carbon Dioxide 24 (22-30) mmol/L Anion Gap 14.5 (5-15) MEQ/L BUN 14 (7-17) mg/dL Creatinine 0.91 (0.52-1.04) mg/dL Estimated GFR > 60.0 ML/MIN Glucose 118 H (74-106) mg/dL Calcium 9.9 (8.4-10.2) mg/dL Total Bilirubin 0.30 (0.2-1.3) mg/dL AST 27 (14-36) U/L ALT 14 (0-35) U/L Alkaline Phosphatase 100 (38-126) U/L Troponin I < 0.012 (0.000-0.034) ng/mL Serum Total Protein 7.6 (6.3-8.2) g/dL Albumin 4.6 (3.5-5.0) g/dL 03/02/21 Range/Units 00:15 WBC 7.2 (4.0-10.5) K/mm3 RBC 3.86 L (4.1-5.4) M/mm3 Hgb 12.2 (12.0-16.0) gm/dl Hct 36.7 (35-47) % MCV 95.1 (78-100) fl MCH 31.6 (26-32) pg MCHC 33.2 (32-36) g/dl RDW 14.1 H (11.5-14.0) % Plt Count 307 (150-450) K/mm3 MPV 11.2 H (7.5-11.0) fl Gran % 50.5 (36.0-66.0) % Eos # (Auto) 0.17 (0-0.5) Absolute Lymphs (auto) 2.57 (1.0-4.6) Absolute Monos (auto) 0.79 (0.0-1.3) Lymphocytes % 35.8 (24.0-44.0) % Monocytes % 11.0 (0.0-12.0) % Eosinophils % 2.4 (0.00-5.0) % Basophils % 0.3 (0.0-0.4) % Absolute Granulocytes 3.63 (1.4-6.9) Basophils # 0.02 (0-0.4) PT (9.4-12.5) SECONDS INR (0.8-3.0) APTT (25.1-36.5) SECONDS Sodium (137-145) mmol/L Potassium (3.5-5.1) mmol/L Chloride (98-107) mmol/L Carbon Dioxide (22-30) mmol/L Anion Gap (5-15) MEQ/L BUN (7-17) mg/dL Creatinine (0.52-1.04) mg/dL Estimated GFR ML/MIN Glucose (74-106) mg/dL Calcium (8.4-10.2) mg/dL Total Bilirubin (0.2-1.3) mg/dL AST (14-36) U/L ALT (0-35) U/L Alkaline Phosphatase (38-126) U/L Troponin I (0.000-0.034) ng/mL Serum Total Protein (6.3-8.2) g/dL Albumin (3.5-5.0) g/dL - Progress Progress: improved Progress Note: 03/02/21 01:37 Pt wo chest pain/dyspnea/arrythmia in ER. Napping before discharge. 03/02/21 02:24 Counseled pt/family regarding: lab results, diagnosis, need for follow-up, rad results - Departure Departure Disposition: Home Clinical Impression: Heart palpitations Condition: Stable Critical Care Time: No Referrals: VINCE MENDEZ DO [Primary Care Provider] - Instructions: Arrhythmias (DC), Palpitations (DC) Additional Instructions: Follow up with Dr. Iraheta Return to ER for palpatations/Heart rate greater than 120/chest pain/shortness of breath
[2021-03-02 00:26] LABS: Absolute Neutrophil Ct (ANC) 3.63 (1.4-6.9); BASOPHIL % 0.3 % (0.0-0.4); Basophil (Absolute #) 0.02 (0-0.4); Eosinophil % 2.4 % (0.00-5.0); Eosinophil (Absolute #) 0.17 (0-0.5); Hematocrit 36.7 % (35-47); Hemoglobin 12.2 gm/dl (12.0-16.0); Lymphocyte (Absolute #) 2.57 (1.0-4.6); Lymphocytes % 35.8 % (24.0-44.0); Mean Cell Volume 95.1 fl (78-100); Mean Corpuscular Hemoglobin 31.6 pg (26-32); Mean Corpuscular Hgb Concent. 33.2 g/dl (32-36); Mean Platelet Volume 11.2 fl (7.5-11.0); Monocyte (Absolute #) 0.79 (0.0-1.3); Neutrophil % 50.5 % (36.0-66.0); Platelet Count 307 K/mm3 (150-450); Red Blood Count 3.86 M/mm3 (4.1-5.4); Red Cell Distribution Width 14.1 % (11.5-14.0); White Blood Count 7.2 K/mm3 (4.0-10.5)
[2021-03-02 00:35] LABS: INR 0.89 (0.8-3.0); PROTIME 10.5 SECONDS (9.4-12.5)
[2021-03-02 00:37] LABS: PTT 29.8 SECONDS (25.1-36.5)
[2021-03-02 00:40] LABS: ALBUMIN 4.6 g/dL (3.5-5.0); ALKALINE PHOSPHATASE 100 U/L (38-126); ANION GAP 14.5 MEQ/L (5-15); BLOOD UREA NITROGEN 14 mg/dL (7-17); CHLORIDE 102 mmol/L (98-107); Calcium 9.9 mg/dL (8.4-10.2); Carbon Dioxide 24 mmol/L (22-30); Creatinine 1 0.91 mg/dL (0.52-1.04); EST GLOMERULAR FILTRATION RATE > 60.0 ML/MIN; Glucose 118 mg/dL (74-106); Potassium 3.9 mmol/L (3.5-5.1); SGOT/AST 27 U/L (14-36); SGPT/ALT 14 U/L (0-35); SODIUM 136 mmol/L (137-145); Total Protein 7.6 g/dL (6.3-8.2)
[2021-03-02 01:47] VITALS: BP 167/87; PULSE 67
[2021-03-02 02:25] VITALS: O2SAT 99
--- NOTE | 2021-03-02 09:00 | XRAY ---
Indication: Palpitations. Comparison: None Portable apical lordotic chest hyperinflated and clear with incidental tiny calcified granulomas. Heart is not enlarged. Bony thorax intact with mild osteopenia and degenerative changes. Impression: Nonacute hyperinflated chest with chronic features.
== END 2021-03-02 01:50 | disposition home or self-care (01) ==
LOC: ED 23:53
DX: R00.2 Palpitations (principal)
CPT/HCPCS: 36415; 71045; 80053; 84484; 85025; 85610; 85730; 93005; 99284

== ENCOUNTER 2023-06-14 18:23 | Emergency (ER) | payer MEDICARE ==
[2023-06-14 18:38] VITALS: TEMP 96.8
[2023-06-14 19:02] LABS: Absolute Neutrophil Ct (ANC) 6.66 x10^3/uL (1.4-6.9); BASOPHIL % 0.5 % (0.0-0.4); Basophil (Absolute #) 0.04 x10^3/uL (0-0.4); Eosinophil % 0.7 % (0.00-5.0); Eosinophil (Absolute #) 0.06 x10^3/uL (0-0.5); Hematocrit 35.2 % (35-47); Hemoglobin 11.7 g/dL (12.0-16.0); IMMATURE GRAN # 0.03 x10^3u/L (0.00-0.03); IMMATURE GRAN % 0.3 % (0.00-0.4); Lymphocyte (Absolute #) 1.22 x10^3/uL (1.0-4.6); Lymphocytes % 14.1 % (24.0-44.0); Mean Cell Volume 95.4 fL (78-100); Mean Corpuscular Hemoglobin 31.7 pg (26-32); Mean Corpuscular Hgb Concent. 33.2 g/dL (32-36); Mean Platelet Volume 10.5 fL (7.5-11.0); Monocyte (Absolute #) 0.66 x10^3/uL (0.0-1.3); Monocytes % 7.6 % (0.0-12.0); Neutrophil % 76.8 % (36.0-66.0); Platelet Count 288 x10^3/uL (150-450); Red Blood Count 3.69 x10^6/uL (4.1-5.4); Red Cell Distribution Width 13.1 % (11.5-14.0); White Blood Count 8.7 x10^3/uL (4.0-10.5)
--- NOTE | 2023-06-14 19:13 | ERPHSYRPT ---
- History of Present Illness Time Seen by Provider: 06/14/23 19:10 Source: patient Exam Limitations: no limitations Patient Subjective Stated Complaint: pt brought in by family for n/v/d today, pt states she has chronic loose stools, vomited x1. feels weak at times Triage Nursing Assessment: pt alert, arrived per wc, to bed with assist of one, skin w/d/p. no edema noted, moves all ext well Physician History: Patient is a 77-year-old female presents to our ED by her family via private vehicle for evaluation of generalized weakness nausea vomiting and diarrhea. Patient reports a baseline history of loose stools. Patient states she vomited once today. No focal or lateralizing symptoms. No numbness tingling or we akness. No associated chest pain or shortness of breath. Symptoms have been constant. Symptoms are moderate in intensity. No specific worsening or improving factors. Patient otherwise feels well. She voices no other complaints or concerns at this time. Portions of this note were created with voice recognition technology. There may be grammatical, spelling, punctuation or sound alike errors Timing/Duration: today Severity: moderate Modifying Factors: Improves With: nothing Associated Symptoms: weakness (Generalized weakness) Allergies/Adverse Reactions: cephalexin [From Keflex] Adverse Reaction (Verified 06/14/23 18:34) Diarrhea Home Medications: Duloxetine HCl 20 mg PO DAILY 06/14/23 [History] Fluticasone Propionate 1 ea DAILY 06/14/23 [History] Hx Tetanus, Diphtheria Vaccination/Date Given: No Hx Influenza Vaccination/Date Given: No Hx Pneumococcal Vaccination/Date Given: No Immunizations Up to Date: Yes Travel Risk - International Travel Have you traveled outside of the country in past 3 weeks: No - Coronavirus Screening Are you exhibiting any of the following symptoms?: No Close contact with a COVID-19 positive Pt in past 14-21 Days: No - Vaccine Status Have you recieved a Covid-19 vaccination: No - Review of Systems Constitutional: No Symptoms, No Fever, No Chills Eyes: No Symptoms Ears, Nose, & Throat: No Symptoms Respiratory: No Symptoms, No Cough, No Dyspnea Cardiac: No Symptoms, No Chest Pain, No Edema, No Syncope Abdominal/Gastrointestinal: No Symptoms, No Abdominal Pain, No Nausea, No Vomiting, No Diarrhea Genitourinary Symptoms: No Symptoms, No Dysuria Musculoskeletal: No Symptoms, No Back Pain, No Neck Pain Skin: No Symptoms, No Rash Neurological: No Symptoms, No Dizziness, No Focal Weakness, No Sensory Changes Psychological: No Symptoms Endocrine: No Symptoms Hematologic/Lymphatic: No Symptoms Immunological/Allergic: No Symptoms All Other Systems: Reviewed and Negative - Past Medical History Pertinent Past Medical History: Yes Neurological History: Other ENT History: No Pertinent History Cardiac History: No Pertinent History Respiratory History: No Pertinent History Endocrine Medical History: Hypoglycemia Musculoskeletal History: No Pertinent History GI Medical History: No Pertinent History History: No Pertinent History Psycho-Social History: No Pertinent History Female Reproductive Disorders: No Pertinent History Other Medical History: SEE ABOVE - Past Surgical History Past Surgical History: Yes Neuro Surgical History: No Pertinent History Cardiac: No Pertinent History Respiratory: No Pertinent History Gastrointestinal: No Pertinent History Genitourinary: No Pertinent History Musculoskeletal: No Pertinent History Female Surgical History: No Pertinent History Other Surgical History: cyst removed from left breast years ago, ovarian cysts removed that caused temporary paralysis prior to removal - Social History Smoking Status: Never smoker Exposure to second hand smoke: Yes Drug Use: none Patient Lives Alone: No Significant Family History: no pertinent family hx - Nursing Vital Signs Nursing Vital Signs: Initial Vital Signs O2 Sat by Pulse Oximetry 95 06/14/23 18:24 Pain Scale Pain Intensity 0 - Physical Exam General Appearance: no apparent distress, alert Eye Exam: PERRL/EOMI, eyes nml inspection Ears, Nose, Throat Exam: normal ENT inspection, TMs normal, pharynx normal, moist mucous membranes Neck Exam: normal inspection, non-tender, supple, full range of motion Respiratory Exam: normal breath sounds, lungs clear, airway intact, No respirato ry distress Cardiovascular Exam: regular rate/rhythm, normal heart sounds, normal peripheral pulses Gastrointestinal/Abdomen Exam: soft, normal bowel sounds, No tenderness, No mass Back Exam: normal inspection, normal range of motion, No CVA tenderness, No vertebral tenderness Extremity Exam: normal inspection, normal range of motion, pelvis stable Neurologic Exam: alert, oriented x 3, cooperative, normal mood/affect, nml cerebellar function, nml station & gait, sensation nml, No motor deficits Skin Exam: normal color, warm, dry, No rash Lymphatic Exam: No adenopathy SpO2 Interpretation: normal SpO2: 100 O2 Delivery: Room Air - Course Nursing assessment & vital signs reviewed: Yes EKG Interpreted by Me: RATE ([id number]), Sinus Rhythm, NORMAL AXIS, NORMAL INTERVALS Ordered Tests: Active Orders 24 hr Category Date Time Status Cage Fighter STAT Care 06/14/23 19:03 Active EKG-ER Only STAT Care 06/14/23 19:02 Active Pulse Oximetry (ED) STAT Care 06/14/23 19:02 Active CBC W DIFF Stat Lab 06/14/23 18:55 Completed CMP Stat Lab 06/14/23 18:55 Completed POCT GLUCOSE Stat Lab 06/14/23 18:36 Completed TROPONIN Q4H Lab 06/14/23 19:15 Completed TROPONIN Q4H Lab 06/14/23 23:15 Ordered TROPONIN Q4H Lab 06/15/23 03:15 Ordered UA W/RFX UR CULTURE Stat Lab 06/14/23 21:09 Completed Medication Summary Generic Name Dose Route Start Last Admin Trade Name Freq PRN Reason Stop Dose Admin Sodium Chloride 1,000 mls @ 50 mls/hr 06/14/23 19:15 06/14/23 19:17 Sodium Chloride 0.9% 1000 Ml IV 07/14/23 19:14 50 mls/hr .Q20H INDIRA Administration Lab/Rad Data: Laboratory Result Diagrams 06/14/23 18:55 06/14/23 18:55 Laboratory Results 06/14/23 06/14/23 06/14/23 Range/Units 21:09 19:15 19:00 WBC (4.0-10.5) x10^3/uL RBC (4.1-5.4) x10^6/uL Hgb (12.0-16.0) g/dL Hct (35-47) % MCV (78-100) fL MCH (26-32) pg MCHC (32-36) g/dL RDW (11.5-14.0) % Plt Count (150-450) x10^3/uL MPV (7.5-11.0) fL Gran % (36.0-66.0) % Immature Gran % (Auto) (0.00-0.4) % Nucleat RBC Rel Count (0.00-0.1) % Eos # (Auto) (0-0.5) x10^3/uL Immature Gran # (Auto) (0.00-0.03) x10^3u/L Absolute Lymphs (auto) (1.0-4.6) x10^3/uL Absolute Monos (auto) (0.0-1.3) x10^3/uL Absolute Nucleated RBC (0.00-0.01) x10^3u/L Lymphocytes % (24.0-44.0) % Monocytes % (0.0-12.0) % Eosinophils % (0.00-5.0) % Basophils % (0.0-0.4) % Absolute Granulocytes (1.4-6.9) x10^3/uL Basophils # (0-0.4) x10^3/uL Sodium (137-145) mmol/L Potassium (3.5-5.1) mmol/L Chloride (98-107) mmol/L Carbon Dioxide (22-30) mmol/L Anion Gap (5-15) MEQ/L BUN (7-17) mg/dL Creatinine (0.52-1.04) mg/dL Estimated GFR ML/MIN Glucose (74-106) mg/dL POC Glucometer (74 to 106) mg/dL Calcium (8.4-10.2) mg/dL Total Bilirubin (0.2-1.3) mg/dL AST (14-36) U/L ALT (0-35) U/L Alkaline Phosphatase (38-126) U/L Troponin I < 0.012 (0.000-0.034) ng/mL Serum Total Protein (6.3-8.2) g/dL Albumin (3.5-5.0) g/dL Urine Color Yellow (Yellow) Urine Appearance Clear (Clear) Urine pH 5.0 (4.6-8.0) Ur Specific [place] >=1.030 A (1.005-1.030) Urine Protein 30 (Negative) Urine Glucose (UA) 250 A (Negative) mg/dL Urine Ketones Negative (Negative) Urine Blood Negative (Negative) Urine Nitrite Negative (Negative) Urine Bilirubin Negative (Negative) Urine Urobilinogen 0.2 (0.2) mg/dL Ur Leukocyte Esterase Negative (Negative) U Hyaline Cast (Auto) 3-5 A (0-2) /LPF Urine Microscopic RBC 3-5 (0-5) /HPF Urine Microscopic WBC 0-2 (0-5) /HPF Ur Epithelial Cells None Seen (None Seen) /HPF Urine Bacteria None Seen (None Seen) /HPF Urine Culture Reflexed NO (NO) Influenza Type A Ag NEGATIVE (NEGATIVE) Influenza Type B Ag NEGATIVE (NEGATIVE) RSV (PCR) NEGATIVE (NEGATIVE) SARS-CoV-2 (PCR) NEGATIVE (NEGATIVE) 06/14/23 06/14/23 06/14/23 Range/Units 18:55 18:55 18:36 WBC 8.7 (4.0-10.5) x10^3/uL RBC 3.69 L (4.1-5.4) x10^6/uL Hgb 11.7 L (12.0-16.0) g/dL Hct 35.2 (35-47) % MCV 95.4 (78-100) fL MCH 31.7 (26-32) pg MCHC 33.2 (32-36) g/dL RDW 13.1 (11.5-14.0) % Plt Count 288 (150-450) x10^3/uL MPV 10.5 (7.5-11.0) fL Gran % 76.8 H (36.0-66.0) % Immature Gran % (Auto) 0.3 (0.00-0.4) % Nucleat RBC Rel Count 0.0 (0.00-0.1) % Eos # (Auto) 0.06 (0-0.5) x10^3/uL Immature Gran # (Auto) 0.03 (0.00-0.03) x10^3u/L Absolute Lymphs (auto) 1.22 (1.0-4.6) x10^3/uL Absolute Monos (auto) 0.66 (0.0-1.3) x10^3/uL Absolute Nucleated RBC 0.00 (0.00-0.01) x10^3u/L Lymphocytes % 14.1 L (24.0-44.0) % Monocytes % 7.6 (0.0-12.0) % Eosinophils % 0.7 (0.00-5.0) % Basophils % 0.5 (0.0-0.4) % Absolute Granulocytes 6.66 (1.4-6.9) x10^3/uL Basophils # 0.04 (0-0.4) x10^3/uL Sodium 133 L (137-145) mmol/L Potassium 4.1 (3.5-5.1) mmol/L Chloride 103 (98-107) mmol/L Carbon Dioxide 21 L (22-30) mmol/L Anion Gap 12.4 (5-15) MEQ/L BUN 15 (7-17) mg/dL Creatinine 1.03 (0.52-1.04) mg/dL Estimated GFR 55.3 ML/MIN Glucose 213 H (74-106) mg/dL POC Glucometer 158 H (74 to 106) mg/dL Calcium 9.6 (8.4-10.2) mg/dL Total Bilirubin 0.60 (0.2-1.3) mg/dL AST 26 (14-36) U/L ALT 16 (0-35) U/L Alkaline Phosphatase 107 (38-126) U/L Troponin I (0.000-0.034) ng/mL Serum Total Protein 7.7 (6.3-8.2) g/dL Albumin 4.3 (3.5-5.0) g/dL Urine Color (Yellow) Urine Appearance (Clear) Urine pH (4.6-8.0) Ur Specific [place] (1.005-1.030) Urine Protein (Negative) Urine Glucose (UA) (Negative) mg/dL Urine Ketones (Negative) Urine Blood (Negative) Urine Nitrite (Negative) Urine Bilirubin (Negative) Urine Urobilinogen (0.2) mg/dL Ur Leukocyte Esterase (Negative) U Hyaline Cast (Auto) (0-2) /LPF Urine Microscopic RBC (0-5) /HPF Urine Microscopic WBC (0-5) /HPF Ur Epithelial Cells (None Seen) /HPF Urine Bacteria (None Seen) /HPF Urine Culture Reflexed (NO) Influenza Type A Ag (NEGATIVE) Influenza Type B Ag (NEGATIVE) RSV (PCR) (NEGATIVE) SARS-CoV-2 (PCR) (NEGATIVE) - Progress Progress: improved Progress Note: Patient is 77-year-old female presents to our ED for evaluation of generalized weakness nausea vomiting and loose stools. Physical exam essentially nonremarkable. Vital stable. EKG shows normal sinus rhythm. CBC within normal limits. CMP shows mildly decreased sodium at 133 versus 135 which is normal. Patient received normal saline. COVID RSV flu negative. Troponin negative. Patient has no chest pain or shortness of breath. No nausea vomiting or diaphoresis. Urinalysis pending. Patient reassessed. Patient has no complaints. Patient is a grandson as at the bedside. We discussed the results. Patient requesting discharge as she has no complaints. Grandson voices no other complaints or concerns at this time. They agree to follow-up with primary care doctor within 48 hours for reevaluation. Portions of this note were created with voice recognition technology. There may be grammatical, spelling, punctuation or sound alike errors Complexity of problem addressed is moderate acute complicated No critical care time Complex of data reviewed and analyzed is moderate. Test ordered test reviewed. Results analyzed and correlated clinically. Risk of complication and or risk of morbidity/mortality of patient management is low. Vital stable. Time spent to discharge patient is approximately 15 minutes. Plan of care established for shared decision making. He will follow-up with primary care doctor within 48 hours for evaluation. No social determinants of health present impede follow-up. Portions of this note were created with voice recognition technology. There may be grammatical, spelling, punctuation or sound alike errors Urinalysis resulted. Specific gravity indicates some degree of dehydration. However IV fluids administered. Glucosuria observed in her urinalysis. Blood glucoses is 213 with a normal anion gap. 06/14/23 20:59 Counseled pt/family regarding: lab results, diagnosis, need for follow-up - Departure Departure Disposition: Home Clinical Impression: Generalized weakness, Nausea vomiting and diarrhea, Glucosuria, Dehydration, Hyperglycemia Condition: Stable Critical Care Time: No Referrals: [facility] [Primary Care Provider] - Follow up/PCP as directed Additional Instructions: Discharge/Care Plan ANNE MARIE ABREU was seen on 06/14/23 in the Emergency Room. The patient was counseled regarding Diagnosis,Lab results, Imaging studies, need for follow up and when to return to the Emergency Room. Prescriptions given: Discharge Note I have spoken with the patient and/or caregivers. I have explained the patient's condition, diagnosis and treatment plan based on the information available to me at this time. I have answered the patient's and/or caregiver's questions and addressed any concerns. The patient and/or caregivers have as good understanding of the patient's diagnosis, condition and treatment plan as can be expected at this point. The vital signs have been stable. The patient's condition is stable and appropriate for discharge from the emergency department. The patient will pursue further outpatient evaluation with the primary care physician or other designated or consulting physician as outlined in the discharge instructions. The patient and/or caregivers are agreeable to this plan of care and follow-up instructions have been explained in detail. The patient and/or caregivers have received these instruction. The patient/and or caregivers are aware that any significant change in condition or worsening of symptoms should prompt an immediate return to this or the closest emergency department or call 911.
[2023-06-14] MEDS ORDERED: Sodium Chloride 0.9% 1000 ML 1,000 ML ONE (19:15)
[2023-06-14] MEDS ORDERED: Sodium Chloride 0.9% 1000 ML 1,000 ML IV SCH (19:15)
[2023-06-14 19:16] LABS: ALBUMIN 4.3 g/dL (3.5-5.0); ANION GAP 12.4 MEQ/L (5-15); BILIRUBIN,TOTAL 0.6 mg/dL (0.2-1.3); Calcium 9.6 mg/dL (8.4-10.2); Creatinine 1 1.03 mg/dL (0.52-1.04); EST GLOMERULAR FILTRATION RATE 55.3 ML/MIN; Potassium 4.1 mmol/L (3.5-5.1); Total Protein 7.7 g/dL (6.3-8.2)
[2023-06-14 19:39] LABS: INFLUENZA A NEGATIVE (NEGATIVE); INFLUENZA B NEGATIVE (NEGATIVE); RESPIRATORY SYNCTIAL VIRUS NEGATIVE (NEGATIVE); SARS-CoV-2 Xpert Express NEGATIVE (NEGATIVE)
[2023-06-14 21:11] VITALS: BP 148/67; PULSE 67; RESP 16
[2023-06-14 21:15] VITALS: O2SAT 100
[2023-06-14 21:45] LABS: Appearance Clear (Clear); Bacteria None Seen /HPF (None Seen); Bilirubin Negative (Negative); Blood Negative (Negative); Epithelial Cells None Seen /HPF (None Seen); Glucose, Urine 250 mg/dL (Negative); Ketones Negative (Negative); Leukocyte Esterase Negative (Negative); Nitrite Negative (Negative); Protein,Urine Dip 30 (Negative); Specific Gravity >=1.030 (1.005-1.030); Urobilinogen 0.2 mg/dL (0.2); WBC 0-2 /HPF (0-5)
[2023-06-14 21:46] LABS: ADD URINE CULTURE? NO (NO)
== END 2023-06-14 22:08 | disposition home or self-care (01) ==
LOC: ED 18:23
DX: R11.2 Nausea with vomiting, unspecified (principal); R19.7 Diarrhea, unspecified; R53.1 Weakness; R81 Glycosuria; E86.0 Dehydration; R73.9 Hyperglycemia, unspecified; Z79.899 Other long term (current) drug therapy; Z28.310 Unvaccinated for COVID-19; Z20.828 Contact with and (suspected) exposure to other viral communicable diseases
CPT/HCPCS: 0241U; 36000; 36415; 80053; 81001; 82947; 84484; 85025; 93005; 93041; 94760; 99284